=== PATIENT | female | born 1970 | race Caucasian/White ===

== ENCOUNTER 2021-06-13 22:46 | Emergency (ER) | payer BC ==
[~2021-06-13 22:46] MED LIST: IBUPROFEN800 MG PO
== END 2021-06-14 02:25 | disposition home or self-care (01) ==
LOC: ER1 22:46
DX: S01.111A Laceration without foreign body of right eyelid and periocular area, initial encounter (principal); S01.81XA Laceration without foreign body of other part of head, initial encounter; S90.512A Abrasion, left ankle, initial encounter; W10.9XXA Fall (on) (from) unspecified stairs and steps, initial encounter
CPT/HCPCS: 12013; 70450; 71045; 72125; 72128; 72131; 73610; 73630; 93005; 99283